=== PATIENT | female | born 1995 | race Caucasian/White ===

== ENCOUNTER 2017-05-10 14:57 | Outpatient (CLI) | payer OTHER ==
[~2017-05-10] VITALS: Ht 165.1 cm; Wt 70.0 kg
[~2017-05-10 14:57] MED LIST: ACET50TA PO; COLA100C5 PO; PREN27TA3 PO
[2017-05-10 15:12] VITALS: BP 129/74
[2017-05-10] MEDS ORDERED: PRENTAB9 PO (15:33)
[2017-07-25] MEDS ORDERED: COLA100C5 PO (10:59)
[2017-07-25] MEDS ORDERED: IBUP200C10 PO (10:59)
[2017-07-25] MEDS ORDERED: [UNRECOGNIZED DRUG - CODE] TOP (10:59)
== END 2017-05-10 16:34 | disposition home or self-care (01) ==
LOC: M LDO 14:57
PROVIDERS: ATTEND Student in an Organized Health Care Education/Training Program
DX: O26.852 Spotting complicating pregnancy, second trimester (principal); Z3A.27 27 weeks gestation of pregnancy